=== PATIENT | female | born 1975 | race Caucasian/White ===

== ENCOUNTER 2018-05-09 15:40 | Emergency (ER) | payer SELFPAY ==
[2018-05-09] MEDS ORDERED: Fentanyl 100 MCG/2 ML VIAL ONE (15:46)
[2018-05-09] MEDS ORDERED: Proparacaine 0.5% Opth 15 ML BOT ONE (15:57)
[2018-05-09] MEDS ORDERED: Fluorescein Opthalmic Strip ONE (15:57)
--- NOTE | 2018-05-09 16:24 | CT ---
CT HEAD NONCONTRAST 05/09/18 HISTORY: Fall. Head injury. FINDINGS: There is no evidence of acute intracranial hemorrhage or infarct. Ventricles appear normal in size, s hape and position. There is no mass effect or shift of midline structures. Mucosal thickening in the sphenoid sinus is apparent. IMPRESSION: No acute intracranial abnormalities are demonstrated. POS: [facility]
[2018-05-09] MEDS ORDERED: Morphine 4 MG/ML VIAL ONE (16:37)
[2018-05-09] MEDS ORDERED: Ondansetron PF 4 MG/2 ML Vial ONE (16:37)
[2018-05-09 17:02] LABS: BHCG - Serum Negative (NEGATIVE); Pregs Control Background? CLEAR/WHITE (CLR/WHITE); Pregs Control Bar Appear? YES (CONTROL BAR)
[2018-05-09 17:09] LABS: Hemoglobin 16.9 g/dL (12.0-16.0); Mean Corpuscular HGB CONC 32.1 g/dL (32.0-36.0); Mean Corpuscular Hemoglobin 33.1 pg (27.0-31.0); Mean Platelet Volume 7.9 fL (7.4-10.4); Platelet Count 346 thou/uL (130-400); RBC Distribution Width 12.4 % (11.5-14.5); Red Blood Cell (RBC) Count 5.11 mill/uL (4.20-5.40); White Blood Cell (WBC) Count 23.8 thou/uL (4.8-10.8)
[2018-05-09 17:19] LABS: ALT (SGPT) 15 U/L (8-55); AST (SGOT) 15 U/L (5-34); Albumin 4.9 g/dL (3.5-5.0); Alkaline Phosphatase 80 U/L (40-150); Anion Gap 16 mmol/L (10-20); BUN (Urea Nitrogen) 9 mg/dL (7.0-18.7); Bilirubin, Total 0.6 mg/dL (0.2-1.2); Calc. Creatinine Clearance 0 mL/min (70-130); Calcium 9.6 mg/dL (7.8-10.44); Carbon Dioxide 19 mmol/L (22-29); Chloride 104 mmol/L (98-107); Estimated GFR-MDRD 81; Globulin 3.2 g/dL (2.4-3.5); Glucose 99 mg/dL (70-105); Potassium 3.4 mmol/L (3.5-5.1); Protein, Total 8.1 g/dL (6.0-8.3); Sodium 136 mmol/L (136-145)
[2018-05-09 17:25] LABS: Band 2 % (5-11); Eosinophils 1 % (0-10); Lymphocytes 9 % (21-51); MDiff Complete? YES; Monocytes 2 % (0-10); Neutrophil 86 % (42-75); PLT Morphology Comment Appears Adequate
== END 2018-05-09 18:04 | disposition short-term general hospital (02) ==
LOC: ERS 15:40
DX: T20.211A Burn of second degree of right ear [any part, except ear drum], initial encounter (principal); T21.24XA Burn of second degree of lower back, initial encounter; T26.01XA Burn of right eyelid and periocular area, initial encounter; R56.9 Unspecified convulsions; X11.8XXA Contact with other hot tap-water, initial encounter
CPT/HCPCS: 36415; 70450; 80053; 84703; 85025; 93005; 96361; 96374; 96375; J2270; J2405; J3010